=== PATIENT | female | born 1955 | race Caucasian/White ===

== ENCOUNTER 2018-05-26 18:35 | Emergency (ER) | payer MEDICAID ==
[2018-05-26 18:35] VITALS: BMI 17.9
--- NOTE | 2018-05-26 20:05 | ED PDOC ---
Arrival/HPI - General Chief Complaint: Back Pain Time Seen by Provider: 05/26/18 19:49 Historian: Patient - History of Present Illness Narrative History of Present Illness (Text): 05/26/18 20:00 62 year old female, whose PMH includes hypothyroidism, who presents to the emergency department complaining of falling against a railing one week ago [place]. Patient reports pain has been on mid to lower back. Patient denies loss of consciousness, loss of bowel or urinary consistency, sensation to lower extremity, dysuria, hematuria, or other complaints. Patient notes having similar pain previously and taking Advil to relieve the pain. Time/Duration: 1 week Symptom Onset: Gradual Symptom Course: Unchanged Context: Slipped Past Medical History - Provider Review Nursing Documentation Reviewed: Yes - Travel History Have you recently traveled outside [place] w/in the past 3 mons?: No - Past History Past History: No Previous - Infectious Disease Hx of Infectious Diseases: None - Tetanus Immunization Tetanus Immunization: Unknown - Past Medical History Past Medical History: No Previous - Cardiac Hx Cardiac Disorders: No - Pulmonary Hx Respiratory Disorders: No - Neurological Hx Neurological Disorder: Yes Other/Comment: Pt stats pituitary tumor removal x4 years ago - HEENT Hx HEENT Disorder: No - Renal Hx Renal Disorder: No - Endocrine/Metabolic Hx Endocrine Disorders: Yes Hx Hypothyroidism: Yes Other/Comment: PITUITORY TUMOR REMOVED 4 YEARS AGO - Hematological/Oncological Hx Blood Disorders: No - Integumentary Hx Dermatological Disorder: No - Musculoskeletal/Rheumatological Hx Musculoskeletal Disorders: Yes Hx Osteoarthritis: Yes - Gastrointestinal Hx Gastrointestinal Disorders: No - Genitourinary/Gynecological Hx Genitourinary Disorders: No - Psychiatric Hx Psychophysiologic Disorder: No Hx Substance Use: No - Past Surgical History Past Surgical History: Non-Contributing - Surgical History Hx Parathyroidectomy: Yes Other/Comment: parathyroid surgery. pituitary tumor removal x4 years ago - Anesthesia Hx Anesthesia: No - Suicidal Assessment Feels Threatened In Home Enviroment: No Family/Social History - Physician Review Nursing Documentation Reviewed: Yes Family/Social History: Unknown Family HX Smoking Status: Never Smoked Hx Alcohol Use: No Hx Substance Use: No Allergies/Home Meds Allergies/Adverse Reactions: Allergies No Known Allergies Allergy (Verified 01/12/17 04:15) Home Medications: Home Meds Medication Instructions Recorded Confirmed Levothyroxine Sodium 50 mcg PO DAILY 01/07/16 05/26/18 Review of Systems - Physician Review All systems were reviewed & negative as marked: Yes - Review of Systems Constitutional: absent: Fevers Respiratory: absent: SOB Cardiovascular: absent: Chest Pain Musculoskeletal: Back Pain (mid and lower back pain) Physical Exam Vital Signs Reviewed: Yes Vital Signs Temp Pulse Resp BP Pulse Ox 05/26/18 21:26 98.2 F 70 17 120/61 98 05/26/18 19:29 97.6 F 76 24 104/69 97 Temperature: Afebrile Blood Pressure: Normal Pulse: Regular Respiratory Rate: Normal Appearance: Positive for: Well-Appearing, Non-Toxic, Comfortable Pain Distress: None Mental Status: Positive for: Alert and Oriented X 3 - Systems Exam Head: Present: Atraumatic, Normocephalic Pupils: Present: PERRL Extroacular Muscles: Present: EOMI Conjunctiva: Present: Normal Respiratory/Chest: Present: Clear to Auscultation, Good Air Exchange. No: Respiratory Distress, Accessory Muscle Use, Wheezes, Decreased Breath Sounds, Rales, Retracting, Rhonchi Cardiovascular: Present: Regular Rate and Rhythm, Normal S1, S2. No: Murmurs Abdomen: Present: Normal Bowel Sounds. No: Tenderness, Distention, Peritoneal Signs, Rebound, Guarding Back: Present: Paraspinal Tenderness (T10-L4) Upper Extremity: Present: Normal Inspection, Normal ROM. No: Cyanosis, Edema Lower Extremity: Present: Normal Inspection, NORMAL PULSES, Normal ROM, Neurovascularly Intact, Capillary Refill < 2 s. No: Edema, Swelling, Deformity Neurological: Present: GCS=15, CN II-XII Intact, Speech Normal Medical Decision Making ED Course and Treatment: 05/26/18 Impression: 62 year old female with paraspinal tenderness from T10 - L4. Differential Diagnosis included but are not limited to: back contusion given trauma mechanism Plan: -- Anaprox and Flexeril -- LS x-ray -- Reassess and disposition Progress Notes: 05/26/18 21:21: LS X-ray read and interpreted by me shows no acute findings. On re-evaluation, patient feels better and is in no acute distress. I have discussed the results and plan with the patient, who expresses understanding. Patient in agreement with plan to be discharged home. Patient is stable for discharge with a diagnosis of back contusion and will be discharged home with pain medication and muscle relaxants. Patient was instructed to follow up with physician or return if symptoms worsen or new concerning symptoms arise. Reassessment Condition: Improved - RAD Interpretation Narrative RAD Interpretations (Text): 05/27/18 06:44 Lumbar spine films neg for acute fx Radiology Orders: 05/26/18 20:01 LS SPINE WITH OBL > 18 YRS OLD [RAD] Stat Director Emergency Services: ED Physician, Radiologist - Medication Orders Current Medication Orders: Discontinued Medications Cyclobenzaprine HCl (Flexeril) 5 mg PO STAT STA Stop: 05/26/18 20:02 Last Admin: 05/26/18 20:34 Dose: 5 mg Naproxen (Anaprox Ds) 550 mg PO STAT STA Stop: 05/26/18 20:24 Last Admin: 05/26/18 20:34 Dose: 550 mg - Scribe Statement The provider has reviewed the documentation as recorded by the Landryibe Kelly Beltran Provider Scribe Attestation: All medical record entries made by the Scribe were at my direction and personally dictated by me. I have reviewed the chart and agree that the record accurately reflects my personal performance of the history, physical exam, medical decision making, and the department course for this patient. I have also personally directed, reviewed, and agree with the discharge instructions and disposition. Disposition/Present on Arrival - Present on Arrival Any Indicators Present on Arrival: No History of DVT/PE: No History of Uncontrolled Diabetes: No Urinary Catheter: No History of Decub. Ulcer: No History Surgical Site Infection Following: None - Disposition Have Diagnosis and Disposition been Completed?: Yes Diagnosis: Contusion, back Disposition: HOME/ ROUTINE Disposition Time: 06:45 Patient Plan: Discharge Condition: GOOD Discharge Instructions (ExitCare): Contusion (DC) Print Language: SYRIAC Prescriptions: Cyclobenzaprine [Flexeril] 5 mg PO TID #15 tab Naproxen [Naprosyn] 500 mg PO BID #20 tablet Ref[place] [facility] [place] [facility] [place] - Follow up with primary Forms: [employer] (Egyptian)
[2018-05-26] MEDS ORDERED: Naproxen 550 mg Tab PO STA (20:23)
[2018-05-26 21:28] VITALS: BP 120/61; PULSE 70; RESP 17; TEMP 98.2; O2SAT 98
--- NOTE | 2018-05-27 08:18 | RAD ---
PROCEDURE: Radiographs of the Lumbar Spine. HISTORY: trauma COMPARISON: No prior. FINDINGS: BONES: Diffuse osteopenia. No fracture. DISC SPACES: Unremarkable. OTHER FINDINGS: None. IMPRESSION: No acute findings related to/accounting for the clinical presentation.
[2018-05-27] MEDS ORDERED: Naproxen 550 mg Tab PO SCH (10:00)
== END 2018-05-26 21:27 | disposition home or self-care (01) ==
LOC: ED 18:35
DX: S30.0XXA Contusion of lower back and pelvis, initial encounter (principal); W22.09XA Striking against other stationary object, initial encounter; Y92.814 Boat as the place of occurrence of the external cause

== ENCOUNTER 2018-07-16 17:22 | Emergency (ER) | payer MEDICAID ==
[2018-07-16 17:23] VITALS: BMI 17.9
[2018-07-16 17:44] VITALS: TEMP 98.3; O2SAT 98
--- NOTE | 2018-07-16 17:55 | ED PDOC ---
Arrival/HPI - General Chief Complaint: Back Pain Time Seen by Provider: 07/16/18 17:44 Historian: Patient - History of Present Illness Narrative History of Present Illness (Text): 07/16/18 17:50 62 y/o female, whose PMH includes hypothyroidism, who presents to the emergency department complaining of lower back pain since April s/p hitting her back. Patient reports she was seen for this problem and x-ray results were negative. Patient was referred to a physical therapist and the pain has become worse since then, especially when sitting or standing. Patient denies chest pain, shortness of breath, dysuria, hematuria, or recent fall or traumas. Time/Duration: > month Symptom Onset: Gradual Symptom Course: Worsening Past Medical History - Provider Review Nursing Documentation Reviewed: Yes - Past History Past History: No Previous - Infectious Disease Hx of Infectious Diseases: None - Tetanus Immunization Tetanus Immunization: Unknown - Reproductive Menopause: Yes - Past Medical History Past Medical History: No Previous - Cardiac Hx Cardiac Disorders: No - Pulmonary Hx Respiratory Disorders: No - Neurological Hx Neurological Disorder: Yes Other/Comment: Pt stats pituitary tumor removal x4 years ago - HEENT Hx HEENT Disorder: No - Renal Hx Renal Disorder: No - Endocrine/Metabolic Hx Endocrine Disorders: Yes Hx Hypothyroidism: Yes Other/Comment: PITUITORY TUMOR REMOVED 4 YEARS AGO - Hematological/Oncological Hx Blood Disorders: No - Integumentary Hx Dermatological Disorder: No - Musculoskeletal/Rheumatological Hx Musculoskeletal Disorders: Yes Hx Osteoarthritis: Yes - Gastrointestinal Hx Gastrointestinal Disorders: No - Genitourinary/Gynecological Hx Genitourinary Disorders: No - Psychiatric Hx Psychophysiologic Disorder: No Hx Substance Use: No - Past Surgical History Past Surgical History: Non-Contributing - Surgical History Hx Parathyroidectomy: Yes Other/Comment: parathyroid surgery. pituitary tumor removal x4 years ago - Anesthesia Hx Anesthesia: No - Suicidal Assessment Feels Threatened In Home Enviroment: No Family/Social History - Physician Review Nursing Documentation Reviewed: Yes Family/Social History: Unknown Family HX Smoking Status: Never Smoked Hx Alcohol Use: No Hx Substance Use: No Allergies/Home Meds Allergies/Adverse Reactions: Allergies No Known Allergies Allergy (Verified 01/12/17 04:15) Home Medications: Home Meds Medication Instructions Recorded Confirmed Levothyroxine Sodium 50 mcg PO DAILY 01/07/16 05/26/18 Review of Systems - Physician Review All systems were reviewed & negative as marked: Yes - Review of Systems Constitutional: absent: Fevers Respiratory: absent: SOB Musculoskeletal: Back Pain (lower back pain ) Physical Exam Vital Signs Reviewed: Yes Vital Signs Temp Pulse Resp BP Pulse Ox 07/16/18 18:51 72 18 126/78 98 07/16/18 17:41 98.3 F 83 20 122/66 98 Temperature: Afebrile Blood Pressure: Normal Pulse: Regular Respiratory Rate: Normal Appearance: Positive for: Well-Appearing, Non-Toxic, Comfortable Pain Distress: None Mental Status: Positive for: Alert and Oriented X 3 - Systems Exam Head: Present: Atraumatic, Normocephalic Pupils: Present: PERRL Extroacular Muscles: Present: EOMI Conjunctiva: Present: Normal Back: Present: Paraspinal Tenderness (paralumbar tenderness) Neurological: Present: GCS=15, CN II-XII Intact, Speech Normal Skin: Present: Warm, Dry, Normal Color. No: Rashes Psychiatric: Present: Alert, Oriented x 3, Normal Insight, Normal Concentration Medical Decision Making ED Course and Treatment: 07/16/18 Impression: 62 y/o female with paralumbar tenderness complaining of lower back pain that has become worse since April Plan: -- Flexeril and Toradol -- Reassess and disposition Prior Visits: Notes and results from previous visits were reviewed. Progress Notes: 07/16/18 Patient decline any new x-rays. 07/21/18 11:52 ppt oberserved pain improved neuor intact no saddle anesthesia. declines new imaging. advise outpt fu. - Medication Orders Current Medication Orders: Discontinued Medications Cyclobenzaprine HCl (Flexeril) 10 mg PO STAT STA Stop: 07/16/18 17:53 Last Admin: 07/16/18 18:50 Dose: 10 mg Ketorolac Tromethamine (Toradol) 30 mg IM STAT STA Stop: 07/16/18 17:53 Last Admin: 07/16/18 18:50 Dose: 30 mg MAR Pain Assessment Document 07/16/18 18:50 GMD (Rec: 07/16/18 18:50 GMD [id number]) Pain Reassessment Is this a pain reassessment? No IM Administration Charges Document 07/16/18 18:50 GMD (Rec: 07/16/18 18:50 GMD [id number]) Injection Site MAR Injection Site Left Deltoid Charges for Administration # of IM Administrations 1 - Scribe Statement The provider has reviewed the documentation as recorded by the Joe Beltran Provider Landryibe Attestation: All medical record entries made by the Scribe were at my direction and personally dictated by me. I have reviewed the chart and agree that the record accurately reflects my personal performance of the history, physical exam, medical decision making, and the department course for this patient. I have also personally directed, reviewed, and agree with the discharge instructions and disposition. Disposition/Present on Arrival - Present on Arrival Any Indicators Present on Arrival: No History of DVT/PE: No History of Uncontrolled Diabetes: No Urinary Catheter: No History of Decub. Ulcer: No History Surgical Site Infection Following: None - Disposition Have Diagnosis and Disposition been Completed?: Yes Diagnosis: Low back pain Disposition: HOME/ ROUTINE Disposition Time: 06:00 Condition: STABLE Discharge Instructions (ExitCare): Low Back Pain (DC) Print Language: MALTESE Additional Instructions: you are DECLINING any imaging of your back at this time. you are able to return to er with any worsening symptosm or concerns. please follow up with specialist. you will need further testing as an outpatient Prescriptions: Cyclobenzaprine [Cyclobenzaprine HCl] 10 mg PO DAILY PRN #10 tab PRN Reason: Muscle Spasm Naproxen [Naprosyn] 500 mg PO BID PRN #14 tablet PRN Reason: Pain, Mild (1-3) Referrals: [facility] [Outside] - Follow up with primary [facility] at [facility] [place]Outside] - Follow up with primary Visco,Mason Miller MD [Staff Provider] - Follow up with primary Forms: [employer] (Spanish)
[2018-07-16 18:52] VITALS: BP 126/78; PULSE 72; RESP 18
== END 2018-07-16 18:51 | disposition home or self-care (01) ==
LOC: ED 17:22
DX: M54.5 Low back pain (principal); E03.9 Hypothyroidism, unspecified
CPT/HCPCS: 96372; 99283; J1885

== ENCOUNTER 2018-11-19 18:34 | Emergency (ER) | payer MEDICAID ==
[2018-11-19 18:57] VITALS: BMI 20.7
[2018-11-19] MEDS ORDERED: Sodium Chloride 0.9% 1,000 ML IV STA (19:14)
[2018-11-19] MEDS ORDERED: Famotidine 20mg/50ml 20 MG/50 ML BAG IVPB STA (19:14)
[2018-11-19] MEDS ORDERED: Simethicone 40 mg/0.6 ml Liquid (30 ml) PO STA (19:15)
[2018-11-19 19:17] VITALS: RESP 18; TEMP 98.1; O2SAT 100
--- NOTE | 2018-11-19 19:24 | ED PDOC ---
Arrival/HPI - General Chief Complaint: Abdominal Pain Time Seen by Provider: 11/19/18 19:03 Historian: Patient - History of Present Illness Narrative History of Present Illness (Text): 63 yr old F w/ hx of pituitary tumor on steroids on synthroid p/w abdominal pain. Abdominal pain x1 week, epigastric, without radiation, improved overall. She notes pain is gas like, associated with lots of burping, worse with laying down. She notes diarrhea earlier in the week, but no recent travel. No dark or bloody stool. No N/V. No fall or trauma. No CP or SOB. No fever, chills or night sweats. No neck stiffness. No rashes. No urinary complaints. No vaginal d/c. No other complaints. Past Medical History - Past History Past History: No Previous - Infectious Disease Hx of Infectious Diseases: None - Tetanus Immunization Tetanus Immunization: Unknown - Past Medical History Past Medical History: No Previous - Cardiac Hx Cardiac Disorders: No - Pulmonary Hx Respiratory Disorders: No - Neurological Hx Neurological Disorder: Yes Other/Comment: Pt stats pituitary tumor removal x4 years ago - HEENT Hx HEENT Disorder: No - Renal Hx Renal Disorder: No - Endocrine/Metabolic Hx Endocrine Disorders: Yes Hx Hypothyroidism: Yes Other/Comment: PITUITORY TUMOR REMOVED 4 YEARS AGO - Hematological/Oncological Hx Blood Disorders: No - Integumentary Hx Dermatological Disorder: No - Musculoskeletal/Rheumatological Hx Musculoskeletal Disorders: Yes Hx Osteoarthritis: Yes - Gastrointestinal Hx Gastrointestinal Disorders: No - Genitourinary/Gynecological Hx Genitourinary Disorders: No - Psychiatric Hx Psychophysiologic Disorder: No Hx Substance Use: No - Past Surgical History Past Surgical History: Non-Contributing - Surgical History Hx Parathyroidectomy: Yes Other/Comment: parathyroid surgery. pituitary tumor removal x4 years ago - Anesthesia Hx Anesthesia: No - Suicidal Assessment Feels Threatened In Home Enviroment: No Family/Social History Family/Social History: Unknown Family HX Smoking Status: Never Smoked Hx Alcohol Use: No Hx Substance Use: No Allergies/Home Meds Allergies/Adverse Reactions: Allergies No Known Allergies Allergy (Verified 01/12/17 04:15) Home Medications: Home Meds Medication Instructions Recorded Confirmed Levothyroxine Sodium 50 mcg PO DAILY 01/07/16 05/26/18 Review of Systems - Review of Systems Constitutional: Normal. absent: Fatigue, Weight Change, Fevers, Night Sweats Eyes: Normal. absent: Vision Changes, Photophobia ENT: Normal. absent: Hearing Changes, Tinnitus, TMJ Pain Respiratory: Normal. absent: SOB, Cough, Sputum, Wheezing Cardiovascular: Normal. absent: Chest Pain, Palpitations, Edema Gastrointestinal: Abdominal Pain. absent: Stool Changes, Constipation, Nausea, Vomiting, Appetite Changes, Hematochezia, Hematemesis, Anorexia Genitourinary Female: absent: Dysuria, Frequency, Hematuria, Urine Output Changes, Vaginal Bleeding, Vaginal Discharge Musculoskeletal: absent: Arthralgias, Back Pain, Neck Pain, Joint Swelling Skin: absent: Rash, Pruritis, Skin Lesions, Laceration, Abscess Neurological: absent: Headache, Dizziness, Focal Weakness, Gait Changes Endocrine: absent: Diaphoresis, Polyuria Hemo/Lymphatic: absent: Adenopathy, Easy Bleeding Psychiatric: absent: Anxiety, Depression, Suicidal Ideation Physical Exam - Systems Exam Head: Present: Atraumatic, Normocephalic Pupils: Present: PERRL. No: Sluggish Extroacular Muscles: Present: EOMI. No: Gaze Palsy Conjunctiva: Present: Normal Ears: Present: Normal Mouth: Present: Moist Mucous Membranes Pharnyx: Present: Normal. No: ERYTHEMA, EXUDATE Nose (External): Present: Atraumatic Nose (Internal): Present: Normal Inspection Neck: Present: Normal Range of Motion Respiratory/Chest: Present: Clear to Auscultation, Good Air Exchange. No: Respiratory Distress, Accessory Muscle Use Cardiovascular: Present: Regular Rate and Rhythm, Normal S1, S2 Abdomen: Present: Tenderness (mild suprapubic). No: Distention, Normal Bowel Sounds, Peritoneal Signs, Rebound, Guarding, McBurney's Point Tender, Rovsing's Sign Present, Hernias, Mass/Organomegaly, Scars Upper Extremity: Present: Normal Inspection, Normal ROM. No: Cyanosis, Edema Lower Extremity: Present: Normal Inspection Neurological: Present: GCS=15, CN II-XII Intact, Speech Normal Skin: Present: Warm, Dry, Normal Color. No: Rashes Psychiatric: Present: Alert, Oriented x 3 Medical Decision Making ED Course and Treatment: 63 yr old F w/ hx of hypothyroid, pituitary tumor p/w epigastric abdominal pain. No RUQ / RLQ / LLQ / periumbilical tenderness. Only tender at epigastric area. No CVAT or back pain. Gas like pain. No current diarrhea or recent abx. No new travel. Likely gastritis vs gastroenteritis. Overall improving per pt. Pending labs EK, NSR, No stemi 11/19/18 21:33 labs unremarkable pain improved abd non-ttp clear for d/c home with f/u and return indications pt agreeable to plan - Medication Orders Current Medication Orders: Famotidine (Pepcid 20mg/50ml Premix) 20 mg in 50 mls @ 100 mls/hr IVPB STAT STA Stop: 11/19/18 19:43 Sodium Chloride (Sodium Chloride 0.9%) 1,000 mls @ 999 mls/hr IV .Q1H1M STA Stop: 11/19/18 20:14 Disposition/Present on Arrival - Present on Arrival Any Indicators Present on Arrival: No History of DVT/PE: No History of Uncontrolled Diabetes: No Urinary Catheter: No History of Decub. Ulcer: No History Surgical Site Infection Following: None - Disposition Have Diagnosis and Disposition been Completed?: Yes Diagnosis: Gastritis Disposition: HOME/ ROUTINE Disposition Time: 21:31 Condition: GOOD Discharge Instructions (ExitCare): Gastritis Additional Instructions: FOLLOW UP WITH THE GI DOCTOR WE HAVE PROVIDED OR SEE YOUR PRIMARY. RETURN IF PAIN WORSENS OR ANY OTHER ISSUES. REESE SEAY, thank you for letting us take care of you today. Your provider was Yoni Cesar and you were treated for STOMACH PAIN. The emergency medical care you received today was directed at your acute symptoms. If you were prescribed any medication, please fill it and take as directed. It may take several days for your symptoms to resolve. Return to the Emergency Department if your symptoms worsen, do not improve, or if you have any other problems. Please contact your doctor or call one of the physicians/clinics you have been referred to that are listed on the Patient Visit Information form that is included in your discharge packet. Bring any paperwork you were given at discharge with you along with any medications you are taking to your follow up visit. Our treatment cannot replace ongoing medical care by a primary care provider outside of the emergency department. Thank you for allowing the [facility] team to be part of your care today. If you had an X-Ray or CT scan: A Radiologist will review the ED reading if any change in treatment is needed we will contact you. If you had a blood, urine, or wound culture: It will take several days for the results, if any change in treatment is needed we will contact you. If you had an STI test: It will take 48 hours for the results. Please call after 1 week if you have not heard back. Prescriptions: Famotidine [Pepcid] 20 mg PO Q12H PRN 4 Days #8 tab PRN Reason: Pain, Moderate (4-7) Referrals: Carissa Abarca MD [Primary Care Provider] - Follow up with primary Jaskaran Kebede MD [Staff Provider] - Follow up with primary Forms: [employer] [facility] (Kazakh)
[2018-11-19 19:29] LABS: URINE BILIRUBIN NEGATIVE (NEGATIVE); URINE BLOOD NEGATIVE (NEGATIVE); URINE GLUCOSE (UA) NEGATIVE (NEGATIVE); URINE LEUKOCYTE ESTERASE MODERATE Leu/uL (NEGATIVE); URINE PROTEIN NEGATIVE mg/dL (<30 mg/dL); URINE UROBILINOGEN 0.2 E.U./dL (<1 E.U./dL)
[2018-11-19 19:30] LABS: URINE APPEARANCE CLEAR (CLEAR); URINE COLOR LIGHT YELLOW (YELLOW)
[2018-11-19 19:51] LABS: VENOUS BLOOD GAS BASE EXCESS -0.6 mmol/L (0.0-2.0); VENOUS BLOOD GAS PO2 37 mm/Hg (30-55); VENOUS BLOOD PH 7.28 (7.32-7.43)
[2018-11-19 19:59] LABS: ALB/GLOB RATIO 1.2 (1.1-1.8); ALT/SGPT 43 U/L (7-56); AST/SGOT 38 U/L (14-36); BLOOD UREA NITROGEN 15 mg/dL (7-21); CALCIUM 9.2 mg/dL (8.4-10.5); GFR NON-AFRICAN AMERICAN > 60; LIPASE 111 U/L (23-300)
[2018-11-19 20:01] LABS: BASO # 0.01 K/mm3 (0.0-2.0); BASO % 0.2 % (0.0-3.0); EOS # 0.1 (0.0-0.7); GRAN # 2.64 (1.4-6.5); GRAN % 51.5 % (50.0-68.0); HEMOGLOBIN 14.1 g/dL (12.0-16.0); LYMPH # 1.9 (1.2-3.4); LYMPH % 36.9 % (22.0-35.0); MEAN CELL VOLUME 88.4 fl (80.0-105.0); MEAN CORPUSCULAR HEMOGLOBIN 30.2 pg (25.0-35.0); MEAN CORPUSCULAR HGB CONC 34.1 g/dl (31.0-37.0); MEAN PLATELET VOLUME 10.5 fl (7.0-11.0); MONO # 0.5 (0.1-0.6); MONO % 10.4 % (1.0-6.0); RBC 4.67 10^6/uL (3.5-6.1); WHITE BLOOD COUNT 5.1 10^3/uL (4.5-11.0)
[2018-11-19 20:03] LABS: URINE EPITHELIAL CELLS 0 - 2 /hpf (0-5); URINE RBC NEGATIVE /hpf (0-2)
[2018-11-19 20:10] LABS: TROPONIN I < 0.01 ng/mL
[2018-11-19 22:01] VITALS: BP 105/87; PULSE 84
--- NOTE | 2018-11-20 09:32 | CARD ---
APPROVED REPORT Date of service: 11/19/2018 EKG Measurement Heart [id number] <Conclusion> Normal sinus rhythm RVCD Normal ECG No change
== END 2018-11-19 22:00 | disposition home or self-care (01) ==
LOC: ED 18:34
DX: K29.70 Gastritis, unspecified, without bleeding (principal)
CPT/HCPCS: 80053; 81001; 82803; 83690; 83735; 84484; 85025; 87086; 93005; 99283; J7030